=== PATIENT | female | born 2000 | race Caucasian/White ===

== ENCOUNTER → 2022-03-13 15:14 | Outpatient (BNVA) | payer MEDICAID, SELFPAY | PROVIDERS: Visit Provider Nurse Practitioner Women's Health | DX: Z30.9 Encounter for contraceptive management, unspecified (principal) | CPT/HCPCS: 81025 ==

== ENCOUNTER → 2022-05-29 13:08 | Outpatient (BNVA) | payer MEDICAID, SELFPAY | PROVIDERS: Visit Provider Nurse Practitioner Women's Health | DX: Z01.419 Encounter for gynecological examination (general) (routine) without abnormal findings (principal); Z11.3 Encounter for screening for infections with a predominantly sexual mode of transmission | CPT/HCPCS: 86592; 86803; 87340; 87491; 87591; 87661; 87806; 88175 ==

== ENCOUNTER 2022-10-11 16:39 | Emergency (ER) | payer OTHER, MEDICAID, SELFPAY ==
[2022-10-11 16:43] VITALS: BMI 21.6
[2022-10-11 16:50] VITALS: O2SAT 100
[2022-10-11 17:00] VITALS: BP 138/116; O2SAT 96
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
[2022-10-11 17:30] VITALS: BP 145/114; O2SAT 97
[2022-10-11 18:00] VITALS: BP 133/91; O2SAT 99
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
[2022-10-11 18:21] LABS: Basophils # 0.1 10^3/uL (0.0-0.1); Basophils % 0.6 %; Eosinophils # 0.1 10^3/uL (0.0-0.8); Eosinophils % 0.9 %; Hematocrit 49.3 % (37.0-47.0); Hemoglobin 16.6 g/dL (11.5-15.3); Lymphocytes # 2.4 10^3/uL (0.8-4.8); Lymphocytes % 25.4 %; Mean Corpuscular HGB Conc 33.7 g/dL (30.0-36.0); Mean Corpuscular Hemoglobin 29.3 pg (28.0-34.0); Mean Corpuscular Volume 86.9 fl (81-99); Monocytes # 0.4 10^3/uL (0.2-0.9); Monocytes % 4.6 %; Neutrophils # 6.47 10^3/uL (1.8-7.7); Neutrophils % 68.2 %; Nucleated Red Blood Cells % 0 %; Platelet Count 386 10^3/cmm (130-400); Red Blood Count 5.67 10^6/uL (4.1-5.3); Red Cell Distribution Width 11.9 % (12.1-15.1); White Blood Count 9.5 10^3/uL (4.0-10.0)
[2022-10-11 18:30] VITALS: BP 130/98; O2SAT 98
[2022-10-11] MEDS: ketorolac 30 mg/mL INJ 15 MG IVP (18:30)
[2022-10-11 18:38] LABS: Anion Gap 17.6 (5-19); Blood Urea Nitrogen 9 mg/dL (6-20); Calcium 9.9 mg/dL (8.5-10.5); Carbon Dioxide 22 mmol/L (22-29); Chloride 106 mmol/L (98-107); Glomerular Filtration Rate 105.6 mL/min (90-130); Glucose 94 mg/dL (65-115); Osmolality Calculated 292 mOsm/kg (285-295); Potassium 3.6 mmol/L (3.5-5.1); Sodium 142 mmol/L (136-145)
[2022-10-11 18:55] LABS: HCG Qualitative Urine. Negative (Negative)
[2022-10-11 19:02] LABS: Amphetamines Screen Urine Negative (Negative); Barbiturates Screen Urine Negative (Negative); Benzodiazepines Screen Urine Negative (Negative); Cocaine Screen Urine Negative (Negative); Opiate Screen Urine Negative (Negative); PCP Screen Urine Negative (Negative); THC Screen Urine Negative (Negative)
[2022-10-11 19:03] LABS: Specific Gravity, Urine 1.015 (1.005-1.030); Urine Appearance Clear (CLEAR); Urine Color Yellow (Yellow); pH Urine 6 (5-7)
[2022-10-11 19:04] LABS: Add Urine Microscopic? YES; Bilirubin Urine Neg (Negative); Blood Urine 3+ (Negative); Glucose Urine UA Norm (Normal); Ketones Urine Negative (Negative); Leukocyte Esterase Urine Negative (Negative); Nitrate Urine Negative (Negative); Protein Urine Neg (Negative); Urobilinogen Urine 1 mg/dL (Negative)
[2022-10-11 19:05] LABS: Add Urine Culture? No; Bacteria Urine TRACE /hpf; Mucus Urine 3+ /hpf; WBC Urine 0-4 /hpf (0-5)
[2022-10-11 19:36] VITALS: BP 122/91; PULSE 80; RESP 16; O2SAT 98
== END 2022-10-11 19:35 | disposition home or self-care (01) ==
PROVIDERS: Emergency Provider Family Medicine
DX: S80.11XA Contusion of right lower leg, initial encounter (principal); S16.1XXA Strain of muscle, fascia and tendon at neck level, initial encounter; V89.2XXA Person injured in unspecified motor-vehicle accident, traffic, initial encounter
CPT/HCPCS: 70450; 71045; 72125; 73030; 73562; 73590; 80048; 80306; 81001; 81025; 85025; 96374; 99285; J1885

== ENCOUNTER → 2023-06-13 08:26 | Outpatient (BNVA) | payer MEDICAID, SELFPAY | PROVIDERS: Visit Provider Nurse Practitioner Women's Health | DX: O26.90 Pregnancy related conditions, unspecified, unspecified trimester (principal) | CPT/HCPCS: 84702 ==

== ENCOUNTER 2024-06-08 08:36 | Outpatient (RCR) | payer OTHER, SELFPAY | END 2024-07-03 23:59 | disposition home or self-care (01) | LOC: SOT 08:36 | PROVIDERS: PCP Family Medicine; Visit Provider Family Medicine | DX: M79.632 Pain in left forearm (principal); M77.12 Lateral epicondylitis, left elbow | CPT/HCPCS: 97035; 97110; 97166; G0283 ==

== ENCOUNTER 2024-12-02 06:58 | Outpatient (CLI) | payer OTHER, MEDICAID, SELFPAY ==
--- NOTE | 2024-12-02 07:15 | US_ITS ---
WS: [id number] ULTRASOUND RIGHT BREAST, limited HISTORY: N63.10 - Unspecified lump in the right breast, unspecifie... COMPARISON: None available. TECHNIQUE: 2-D and Doppler. Palpable mass in the RIGHT breast is noted at 7:00, 3 cm from the nipple. Oval mass slightly microlob ulated margins. Mass is slightly hypoechoic to the adjacent breast parenchyma. Mass measures 1.9 x 2. 0 x 1.0 cm with minimal peripheral vascularity. There is no posterior shadowing. No echogenic foci. US/US breast RT limited* [id number] IMPRESSION: BI-RADS: 4- Suspicious Finding - Biopsy Should be Considered FOLLOW-UP: Biopsy Recommended Ultrasound-guided biopsy recommended of the RIGHT breast mass at 7:00. This is most likely a benign fibroadenoma given its ultrasound appearance and age of th e patient. To confirm diagnosis ultrasound-guided biopsy is recommended. I did discuss this with the patient at the time of the exam.
== END 2024-12-02 06:59 | disposition home or self-care (01) ==
LOC: RAD 07:05
PROVIDERS: PCP Family Medicine; Visit Provider Nurse Practitioner Women's Health
DX: N63.13 Unspecified lump in the right breast, lower outer quadrant (principal)
CPT/HCPCS: 76642

== ENCOUNTER 2024-12-29 13:46 | Outpatient (CLI) | payer OTHER, MEDICAID, SELFPAY ==
--- NOTE | 2024-12-29 14:45 | US_ITS ---
WS: [id number] ULTRASOUND-GUIDED RIGHT BREAST BIOPSY HISTORY: Palpable mass RIGHT breast at 7:00. COMPARISON: Ultrasound 12/02/2024 Procedure, risks and complications are explained to the patient. Medications are reviewed. Consent is obtained. The mass in the RIGHT breast is localized with ultrasound. Mass localizes to 7:00, 2 cm from the nipple. Skin is cleansed with ChloraPrep and anesthetized with 1% buffered lidocaine. Small dermatome is made. Under sterile conditions mass is biopsied with a 14-gauge Achieve needle. Multiple core biopsies are performed. Material placed in formalin and sent to pathology for review. No complications encountered. Breast tissue marker (kWhOURS ultrasound enhanced ribbon): Single. Patient left the radiology suite with no complications. Patient is instructed to return to [facility] or call with any concerns. US/[place] [id number] IMPRESSION: 1. Uncomplicated core needle biopsy RIGHT breast mass at 7:00. PATHOLOGY: Fibroepithelial lesion, most consistent with a fibroadenoma. RECOMMENDATION: No additional imaging follow-up necessary unless the mass eren nues to enlarge. Surgical excision may be of benefit.
== END 2024-12-29 13:47 | disposition home or self-care (01) ==
PROVIDERS: PCP Family Medicine; Visit Provider Nurse Practitioner Women's Health
DX: N63.13 Unspecified lump in the right breast, lower outer quadrant (principal); N64.89 Other specified disorders of breast; N60.31 Fibrosclerosis of right breast; N60.21 Fibroadenosis of right breast
CPT/HCPCS: 19083; 88305